=== PATIENT | female | born 1965 | race Caucasian/White ===

== ENCOUNTER → 2024-06-23 10:04 | Outpatient (CLI) | payer OTHER, SELFPAY ==
--- NOTE | 2024-06-23 10:05 | DI.MG.S_ITS ---
BILATERAL DIGITAL SCREENING MAMMOGRAM 3D/2D WITH CAD: 06/23/2024 Comparison is made to exams dated: 02/17/2023 mammogram, 01/02/2022 mammogram, and 01/01/2021 mammogram. There are scattered areas of fibroglandular density (category b / 25%-50% glandular tissue). Current study was also evaluated with a Computer Aided Detection (CAD) system. There are benign post operative findings in the left breast. No significant masses, calcifications, or other findings are seen in either breast. There has been no significant interval change. IMPRESSION: BENIGN There is no mammographic evidence of malignancy. A 1 year screening mammogram is recommended. Based on the Tyrer Cuzick model (a risk assessment model) the patient's lifetime risk is 12.8% and her 10 year risk is 5.0%. According to the ACR, ACS, and NCCN guidelines, an annual breast MRI exam along with mammogram is recommended if the patient's lifetime risk is 20% or greater. This exam was interpreted at Station ID: [id number]. NOTE: For mammograms, a report in lay terms will be sent to the patient. Approximately 15% of breast malignancies will not be visualized mammographically. In the management of a palpable breast mass, a negative mammogram must not discourage biopsy of a clinically suspicious lesion. Electronically Signed By: Brittany Vanessa M.D., Ph.D. brooke/rima:06/24/2024 00:50:57 letter sent: Normal Exam ACR BI-RADS Category 2: Benign
== END ==
LOC: MAMMO 10:04
PROVIDERS: PCP Family Medicine; Referring Provider Family Medicine; Visit Provider Family Medicine
DX: Z12.31 Encounter for screening mammogram for malignant neoplasm of breast (principal)
CPT/HCPCS: 77063; 77067

== ENCOUNTER → 2025-05-10 10:23 | Outpatient (CLI) | payer OTHER, SELFPAY ==
--- NOTE | 2025-05-10 10:24 | DI.RAD.S_ITS ---
PROCEDURE: XR DEXA AXIAL SKELETON INDICATIONS: screening osteoporosis COMPARISON: None. FINDINGS: Lumbar Spine: Bone mineral density 0.969 g/cm2, T score -0.7. Left Femoral Neck: Bone mineral density 0.695 g/cm2, T score -1.4. Left Hip: Bone mineral density is 0.75 g/cm2, T score -1.2. Fracture Risk Calculation (when applicable): 10-year fracture risk of a major osteoporotic fracture 24 percent and of a hip fracture 1.2 percent. Fracture probability calculated for nontreated patient. Fracture probability maybe lower if the patient has received treatment. (T score greater or equal to -1.0 to: NORMAL) (T score from -1.1 to -2.4: OSTEOPENIA) (T score less than or equal to -2.5: OSTEOPOROSIS) IMPRESSION: Normal mineralization in the lumbar spine. Left hip indicates osteopenia. See below for recommended guidelines. Follow-up guidelines as follows: Osteoporosis: Consider a repeat DEXA and Vertebral Fracture Assessment (VFA) exam in 2 years or sooner if medically necessary, to reassess this patient's status. Osteopenia: Consider a repeat DEXA in 2-3 years to reassess this patient's status, or if there is a new clinical indication. Normal: Consider a repeat DEXA in 5 years or sooner, or if there is a new clinical indication. All treatment decisions require clinical judgment and consideration of individual patient factors, including patient preferences, comorbidities, previous drug use, risk factors not captured in the FRAX model (e.g., frailty, falls, vitamin D deficiency, increased bone turnover, interval significant decline in bone density ) and possible under- or over-estimation of fracture risk by FRAX. In addition, the NOF Guide recommends that FDA-approved medical therapies be considered in postmenopausal women and men age >= 50 years with a: * Hip or vertebral (clinical or morphometric) fracture * T-score of <=-2.5 at the spine or hip * Ten-year fracture probability by FRAX of >= 3% for hip fracture or >=20% for major osteoporotic fracture. Dictated by: Deisy Luevano RRMuna Interpreted: Nelson Schultz MD on 05/10/2025 at 13:58 Transcribed by: KENNA on 05/10/2025 at 13:59 Approved by: Nelson Schultz M.D. on 05/11/2025 at 9:40
== END ==
LOC: RAD 10:24
PROVIDERS: PCP Family Medicine; Referring Provider Family Medicine; Visit Provider Family Medicine
DX: M85.852 Other specified disorders of bone density and structure, left thigh (principal)
CPT/HCPCS: 77080

== ENCOUNTER → 2025-06-18 09:01 | Outpatient (CLI) | payer OTHER, SELFPAY ==
[2025-06-18 10:26] LABS: Hemoglobin A1C% w Est Avg Glu 5.2 % (4.0-6.0)
[2025-06-18 10:47] LABS: Alanine Aminotransferase 22 IU/L (<35); Albumin 4.6 g/dL (3.5-5.0); Albumin Globulin Ratio 1.4 (1.0-2.8); Alkaline Phosphatase 73 U/L (38-126); Blood Urea Nitrogen 15 mg/dL (7-17); Calcium 9.4 mg/dL (8.4-10.2); Carbon Dioxide 29 mmol/L (22-32); Chloride 103 mmol/L (98-107); Cholesterol 218 mg/dL (140-199); Estimated Glomerular Filt Rate > 60 mL/min (>60); Globulin 3.3 g/dL (1.7-4.1); Glucose 90 mg/dL (70-99); HDL Cholesterol 61 mg/dL (40-60); HEMOLYSIS < 15 (0-50); Potassium 5.1 mmol/L (3.4-5.1); Sodium 140 mmol/L (137-145); Total Protein 7.9 g/dL (6.3-8.2); Triglycerides 120 mg/dL (35-150)
== END ==
PROVIDERS: PCP Family Medicine; Referring Provider Family Medicine; Visit Provider Family Medicine
DX: E78.2 Mixed hyperlipidemia (principal)
CPT/HCPCS: 36415; 80053; 80061; 83036

== ENCOUNTER → 2025-06-26 13:20 | Outpatient (CLI) | payer OTHER, SELFPAY ==
--- NOTE | 2025-06-26 13:20 | DI.MG.S_ITS ---
MM screening mammo BI: 06/26/2025. BI-RADS: 0 CLINICAL: 60-year old female for bilateral screening mammogram. Tyrer-Cuzick lifetime risk of 16.8%. No personal or first-degree family history of breast cancer. Current reported family history of breast cancer: maternal grandmother. History of ovarian cancer in one first-degree relative. The patient had a prior left breast biopsy. PRIOR EXAMS 06/23/2024. MAMMOGRAPHY TECHNIQUE: 2D and 3D (tomosynthesis) digital mammographic views obtained, with additional images as needed for full coverage. Current study was also evaluated with a Computer Aided Detection (CAD) system. DENSITY C. The breasts are heterogeneously dense, which may obscure small masses. MAMMOGRAPHY FINDINGS Right: No suspicious mass, asymmetry, microcalcification, or other abnormality seen. Left: MLO only, Upper Quadrant, Posterior depth: Asymmetry needing additional imaging evaluation. IMPRESSION: Right * No evidence of malignancy. Left (Asymmetry): MLO only, Upper Quadrant, Posterior depth * Incomplete - asymmetry needing additional imaging evaluation. RECOMMENDATIONS Left: MLO only, Upper Quadrant, Posterior depth * Further evaluation with diagnostic mammography and diagnostic ultrasound. Ultrasound to be performed only if needed. OVERALL ASSESSMENT CATEGORY BI-RADS-0: Incomplete - Need Additional Imaging Evaluation. ELECTRONICALLY SIGNED: Isra Wiggins M.D. on 06/27/2025 at 08:02:22 AM PT Interpreting Station ID: [id number]
== END ==
LOC: MAMMO 13:20
PROVIDERS: PCP Family Medicine; Referring Provider Family Medicine; Visit Provider Family Medicine
DX: Z12.31 Encounter for screening mammogram for malignant neoplasm of breast (principal); R92.8 Other abnormal and inconclusive findings on diagnostic imaging of breast; R92.333 Mammographic heterogeneous density, bilateral breasts; Z80.3 Family history of malignant neoplasm of breast; Z80.41 Family history of malignant neoplasm of ovary
CPT/HCPCS: 77063; 77067

== ENCOUNTER → 2025-07-23 09:35 | Outpatient (CLI) | payer OTHER, SELFPAY ==
--- NOTE | 2025-07-23 09:35 | DI.MG.S_ITS ---
MM diagnostic mammo unilat LT, US breast LT limited: 07/23/2025 BI-RADS: 2 CLINICAL: 60-year old female for left diagnostic mammogram and left diagnostic breast ultrasound that is a recall from screening on 06/26/2025. Tyrer-Cuzick lifetime risk of 16.8%. No personal or first-degree family history of breast cancer. Current reported family history of breast cancer: maternal grandmother. History of ovarian cancer in one first-degree relative. The patient had a prior left breast biopsy. PRIOR EXAMS Mammogram(s): 06/26/2025, 06/23/2024, 02/17/2023, 01/02/2022, . MAMMOGRAPHY TECHNIQUE: 2D and 3D (tomosynthesis) digital mammographic views obtained, with additional images as needed for full coverage. Current study was also evaluated with a Computer Aided Detection (CAD) system. ULTRASOUND TECHNIQUE Real-time garcia scale and color doppler imaging of the area of clinical interest was performed with image documentation. Left targeted breast ultrasound of the area of clinical interest and the axilla was performed with image documentation. DENSITY Left: C. The breast is heterogeneously dense, which may obscure small masses. MAMMOGRAPHY FINDINGS Left (finding-1): MLO only, Posterior depth, measuring 0.5cm. Previous report: MLO only, Upper Quadrant: Correlating with findings on screening mammogram, there is an asymmetry seen only on one view. This finding projects to the lateral breast on the tomosynthesis images. ULTRASOUND FINDINGS Left (finding-1): Outer at 3:00, 6 cm from nipple, measuring 0.5 x 0.3 x 0.5 cm. Previous report: MLO only, Upper Quadrant: Correlating with findings on mammogram there is an intramammary lymph node. Doppler shows hilar vascularity. Left: Axilla: No abnormal lymph nodes are seen in the axilla. IMPRESSION: Left * No evidence of malignancy with benign findings. RECOMMENDATIONS Bilateral * Annual screening mammography. COMMENTS: Findings and recommendations were conveyed to the patient during today's evaluation. OVERALL ASSESSMENT CATEGORY BI-RADS-2: Benign. The [employer] recommends annual screening mammography beginning at age 40 for women with average risk of breast cancer. ELECTRONICALLY SIGNED: Sandra Meek M.D. on 07/23/2025 at 10:58:32 AM PT Interpreting Station ID: [id number]
== END ==
LOC: MAMMO 09:35
PROVIDERS: PCP Family Medicine; Referring Provider Family Medicine; Visit Provider Family Medicine
DX: R92.8 Other abnormal and inconclusive findings on diagnostic imaging of breast (principal); R92.332 Mammographic heterogeneous density, left breast; Z80.3 Family history of malignant neoplasm of breast; Z80.41 Family history of malignant neoplasm of ovary
CPT/HCPCS: 76642; 77065; G0279